=== PATIENT | female | born 1985 ===

== ENCOUNTER 2017-09-09 19:18 | Emergency (ER) | payer OTHER ==
[2017-09-09 20:26] VITALS: BMI 31.5
--- NOTE | 2017-09-09 21:01 | OBHP ---
Datetime: 09/09/2017 20:51 IP Adm Impression: , intrauterine ; No Active Labor IP Admit Plan: Observation/Evaluation; Discharge home Admit Comment, IP Provider: The patient is a 3 para 2 at 26 weeks gestation patient presents to labor and delivery complaining of epigastric discomfort 3 hours duration. Patient states she do es experience some episodes before which spontaneously resolved. Patient reports good movement no vaginal bleeding or leakage of fluid patient describes the discomfort as gastric in nature patient denies any nausea vomiting patient states she feels the fetus balled up underneath her rib cage. Past medical history none Past surgical history one Obstetrical history one normal spontaneous vaginal delivery Medications vitamins No known drug allergies Social history denies alcohol tobacco use Review of systems patient denies headache chest pain shortness of breath palpitations nausea vomit ing diarrhea constipation dysuria vaginal bleeding heat or cold intolerance using bruisability Vital signs stable afebrile Physical exam seen in its Intrauterine at 26 weeks Epigastric district comfort Patient advised to take times no uterine co tocometerntractions records reviewed from [facility] Follow-up with him today Pelvic Type - PN: Adequate Extremities - PN: Normal Abdomen - PN: Normal Back - PN: Normal Breast - PN: Not Done Lungs - PN: Normal Heart - PN: Normal Thyroid - PN: Normal Neurologic - PN: Normal HEENT - PN: Normal General - PN: Normal FHR - Baseline A Provider: [id number] Gestation - Est Wks by US: 26.0 Pool Provider: Negative Vital Signs Provider: Reviewed IP Chief Complaint: Maternal discomfort NICHD Variability Prov Fetus A: Moderate 6-25bpm FHR Category Provider Fetus A: Category I NICHD Decel Fetus A IP Provider: None Dilatation, Provider: 0 Effacement, Provider: 0 Station, Provider: 0 Genitourinary Exam: Normal DTRs - PN: Normal
[2017-09-10 05:35] VITALS: BP 116/81; PULSE 90; O2SAT 98
== END 2017-09-09 20:45 | disposition home or self-care (01) ==
LOC: H.EROB2 19:18 → H.L&D 19:40 → H.EROB2 20:45
DX: O26.92 Pregnancy related conditions, unspecified, second trimester (principal); R10.13 Epigastric pain; Z3A.26 26 weeks gestation of pregnancy; Z87.59 Personal history of other complications of pregnancy, childbirth and the puerperium